=== PATIENT | female | born 1985 | race Caucasian/White ===

== ENCOUNTER 2017-01-22 06:20 | Day surgery (SDC) | payer OTHER ==
[~2017-01-22] VITALS: Ht 160 cm; Wt 113.0 kg
[2017-01-22] VITALS (11 sets, daily range): BP systolic 103–127; BP diastolic 51–57; PULSE 50–72; RESP 11–21; Ht 160 cm; Wt 113.0 kg
[~2017-01-22 06:20] MED LIST: CEFAZOLIN 2 GM/50 ML (PMX) 50 ML IVPB ONE; LORA-186 PO; SOD CHLORIDE 0.9% 1,000 ML IV SCH
[2017-01-22] MEDS ORDERED: BUPIVACAINE 0.25% (MPF) 30 ML INJ ONE (06:44)
[2017-01-22] MEDS ORDERED: BUPIVACAINE 0.5% (SDV) 30 ML INJ ONE (06:44)
[2017-01-22] MEDS ORDERED: LIDOCAINE 2% (MDV) 20 ML INJ ONE (06:44)
[2017-01-22] MEDS ORDERED: MIDAZOLAM 1 MG/ML 2 ML INJ ONE (07:29)
[2017-01-22] MEDS ORDERED: CEFAZOLIN 1 GM INJ ONE (07:29)
[2017-01-22] MEDS ORDERED: FENTAnyl 50 MCG/ML VIAL ONE (07:29)
[2017-01-22] MEDS ORDERED: PROPOFOL 20 ML ONE (07:29)
[2017-01-22] MEDS ORDERED: BUPIVACAINE 0.25% (MPF) 30 ML INJ INJ ONE (08:08)
[2017-01-22] MEDS ORDERED: DEXAMETHASONE 4 MG/ML 1 ML INJ ONE (08:13)
[2017-01-22] MEDS ORDERED: METOCLOPRAMIDE 10 MG INJ ONE (08:13)
[2017-01-22] MEDS ORDERED: KETOROLAC 30 MG INJ ONE (08:13)
[2017-01-22] MEDS ORDERED: ONDANSETRON 4 MG INJ ONE (08:13)
--- NOTE | 2017-01-22 08:25 | OPR ---
Date/Time of Note Date/Time of Note DATE: 01/22/17 TIME: 08:24 Operative Report Preoperative Diagnosis left arm and left leg mass Postoperative Diagnosis same Operation/Procedure Performed excision of left posterior arm mass 3 cm incision 2 cm mass excision of left posterior leg mass 4 cm incision and 3 cm mass localized adjacent tissue transfer with the use of skin flaps therapeutic injection of local anesthesia Surgeon: Chely YOUNG Specimens left arm mass and left posterior leg mass Chely YOUNG Jan 22, 2017 08:25
[2017-01-22] MEDS ORDERED: HYDROmorphONE (0.2 MG/ML) 10ML SYG IV PRN ×3 (08:30)
[2017-01-22] MEDS ORDERED: LABETALOL HCL 20MG INJ IV PRN (08:30)
[2017-01-22] MEDS ORDERED: DIPHENHYDRAMINE 50 MG INJ IV PRN (08:30)
[2017-01-22] MEDS ORDERED: ONDANSETRON 4 MG INJ IV PRN (08:30)
[2017-01-22] MEDS ORDERED: EPHEDrine SULFATE 50 MG/5 ML SYG IV PRN (08:30)
[2017-01-22] MEDS ORDERED: OXYCODONE/ACETAMINOPHEN (5/325) TAB PO PRN ×2 (08:30)
[2017-01-22] MEDS ORDERED: morphine (1 MG/ML) 10ML SYRINGE IV PRN ×3 (08:30)
[2017-01-22] MEDS ORDERED: METOCLOPRAMIDE 10 MG INJ IV PRN (08:30)
[2017-01-22] MEDS ORDERED: MEPERIDINE 25 MG INJ IV PRN (08:30)
[2017-01-22] MEDS ORDERED: ACETAMINOPHEN/CODEINE #3 TAB PO ONE (09:00)
--- NOTE | 2017-01-22 09:31 | OPR ---
DATE OF OPERATION: 01/22/2017 INDICATION: This is a 31-year-old female with symptomatic masses on the left arm and left posterior leg. She requests surgical excision. Risks, alternatives, benefits, and personnel were discussed with the patient. The patient expressed understanding and consents to the operation. PREOPERATIVE DIAGNOSIS: Left arm mass and left leg mass. POSTOPERATIVE DIAGNOSIS: Left arm mass and left leg mass. OPERATION PERFORMED: 1. Excision of left posterior arm mass with 3 cm size incision and 3 cm size mass. 2. Excision of left posterior leg mass with 4 cm size incision and 3 cm size mass. 3. Localized adjacent tissue transfer with the use of skin flaps with 14 square cm defect. 4. Therapeutic injection of local anesthesia. CPT code 29266. SURGEON: Elder Lambert MD SPECIMEN: Left posterior arm mass and left posterior leg mass. COMPLICATIONS: None. ANESTHESIA: General. PROCEDURE: The patient was taken to the OR and prepped and draped in the usual sterile fashion. Celeste rgical timeout was performed. IV antibiotics were given. Incision was made transversely over the l eft posterior arm mass with a 15 blade. Dissection cautery was carried down to the mass and circumf erentially excised. There was good hemostasis. Due to the tissue defect, localized adjacent tissue transfer with the use of skin flaps was performed. Multilayer closures with interrupted 3-0 Vicryl and skin daquan. Local anesthesia was injected. Attention was paid to the left posterior leg mass. Transverse incision is made with a 15 blade. Di ssection cautery was carried down to the mass and circumferentially excised including some of the sk in. Due to tissue defect, localized adjacent tissue transfer with the use of skin flaps was perform ed. Multilayer closure with interrupted 3-0 Vicryl and skin daquan. Local anesthesia was injected . Dry dressings were applied. Dictated By: ELDER LAMBERT MD SB/NTS Conf#: [id number] DID#: [id number]
== END 2017-01-22 10:04 | disposition home or self-care (01) ==
LOC: SDS 06:20
PROVIDERS: ATTEND Surgery
DX: D17.22 Benign lipomatous neoplasm of skin and subcutaneous tissue of left arm (principal); D17.24 Benign lipomatous neoplasm of skin and subcutaneous tissue of left leg
CPT/HCPCS: 14020; 84703; 88307; J0690; J1100; J1885; J2250; J2405; J2765; J3010; Z7512; Z7610